=== PATIENT | female | born 1995 | race Caucasian/White ===

== ENCOUNTER 2024-06-30 19:23 | Emergency (ER) | payer MEDICAID ==
[~2024-06-30] VITALS: Ht 160 cm; Wt 142.0 kg
[2024-06-30 19:32] VITALS: O2SAT 100
[2024-06-30] MEDS: SODIUM CHLORIDE 0.9% 1,000 ML IV ONE (20:06)
[2024-06-30] MEDS: NITROGLYCERIN 0.4MG TABLET SL SL PRN (20:06)
[2024-06-30] MEDS: MORPHINE SULFATE 4 MG/ML INJ (FOR IV/IM USE) IV STA (20:16)
[2024-06-30 20:44] LABS: BASOPHILS % 0.5 % (0.0-2.0); EOSINOPHILS % 1.6 % (0.0-5.0); HEMOGLOBIN. 13.2 g/dL (12.0-16.0); LYMPHOCYTES % 32.1 % (20.0-50.0); MEAN CORPUSCULAR HEMOGLOBIN 28.5 pg (28.0-32.0); MEAN CORPUSCULAR HGB CONC 33.8 g/dL (31.0-37.0); MEAN CORPUSCULAR VOLUME 84.5 fL (81.0-99.0); MEAN PLATELET VOLUME 8.7 fl (7.4-10.4); NEUTROPHILS % 61.8 % (40.0-76.0); PLATELET 325 x1000/uL (130-400); RED BLOOD CELL COUNT 4.61 mill/uL (4.2-5.4); RED CELL DISTRIBUTION WIDTH 12.4 % (11.6-14.6); WHITE BLOOD COUNT 10.6 x1000/uL (4.5-11.0)
[2024-06-30 20:45] LABS: CHLORIDE 106 mEq/L (98-107); POTASSIUM 3.7 mEq/L (3.5-5.1); SODIUM 138 mEq/L (136-145)
[2024-06-30 20:46] LABS: CARBON DIOXIDE 24 mEq/L (21-32)
[2024-06-30 20:47] LABS: CALCIUM 9.1 mg/dL (8.7-10.4)
[2024-06-30 20:51] LABS: CREATININE 0.5 mg/dL (0.6-1.0); D-DIMER 0.34 mg/L FEU (<0.50); INR 0.9; PROTHROMBIN TIME 10.2 sec (9.6-11.0)
[2024-06-30 20:52] LABS: ETHANOL BLOOD < 10 mg/dL (<10); GLUCOSE 135 mg/dL (70-105); UREA NITROGEN BLOOD 13 mg/dL (9-23)
[2024-06-30 20:58] LABS: TROPONIN I HIGH SENSITIVITY < 4 ng/L (3.0-34)
[2024-06-30 22:04] VITALS: TEMP 36.9
[2024-06-30 22:43] VITALS: TEMP 98.42
[2024-06-30 22:59] LABS: *AMPHETAMINES SCREEN URINE NEGATIVE (NEGATIVE); *BARBITURATES SCREEN URINE NEGATIVE (NEGATIVE); *BENZODIAZEPINES SCREEN URINE NEGATIVE (NEGATIVE); *COCAINE SCREEN URINE NEGATIVE (NEGATIVE); METHADONE URINE SCREEN NEGATIVE (NEGATIVE); OPIATES URINE SCREEN PRESUMPTIVE POSITIVE (NEGATIVE); PHENCYCLIDINE URINE SCREEN NEGATIVE (NEGATIVE)
[2024-06-30 23:00] LABS: CANNABINOID URINE SCREEN NEGATIVE (NEGATIVE); ECSTASY MDMA SCREEN URINE NEGATIVE (NEGATIVE)
[2024-07-01 00:15] LABS: TROPONIN I HIGH SENSITIVITY < 4 ng/L (3.0-34)
[2024-07-01] MEDS ORDERED: ACET-2708 MT (01:04)
[2024-07-01] MEDS: FAMOTIDINE 20MG/2ML VIAL IV ONE (01:40)
[2024-07-01] MEDS: KETOROLAC 15MG/ML VIAL IV ONE (01:41)
[2024-07-01 01:43] VITALS: BP 123/79; PULSE 67; RESP 15; O2SAT 97
== END 2024-07-01 02:00 | disposition home or self-care (01) ==
LOC: ER 19:23 → EDBEDREQ 19:52 → ER 07-01 02:00
DX: R07.89 Other chest pain (principal); E11.9 Type 2 diabetes mellitus without complications; Z88.6 Allergy status to analgesic agent; Z98.84 Bariatric surgery status; Z79.899 Other long term (current) drug therapy
CPT/HCPCS: 80305; 80048; 80320; 83880; 85025; 85379; 85610; 84484; 36415; 71045; 93005; 96361; 96374; 99285; 96375; J2270; J7030; Z7610 ×2; J1308; J1885; A4606; G0480